=== PATIENT | female | born 1975 | race Caucasian/White ===

== ENCOUNTER 2016-09-13 11:18 | Day surgery (SDC) | payer MEDICAID ==
[2016-09-13] MEDS ORDERED: LIDOCAINE 1% 30 ML SDV ONE (12:12)
--- NOTE | 2016-09-13 13:23 | CPIP ---
[f rep st] INVASIVE CARDIAC PROCEDURE DATE OF PROCEDURE: 09/13/2016 INDICATIONS: The patient is a pleasant 40-year-old female, typically followed by Dr. German Andre. S he has a history of multiple episodes of syncope, with an etiology not yet identified. PROCEDURE: Implantation of a [employer]onic LINQ. TECHNIQUE: Following informed consent, in the fasting state the patient was brought to the [facility]. The left chest was prepped and draped in usual sterile fashion. The 4th intercostal space was identifie d and marked. 2% lidocaine was infiltrated into the skin. The Medtronic LINQ was then injected bene ath the skin. Two bran were used to close the wound. There were no complications. /[id number]/MODL
== END 2016-09-13 13:48 | disposition home or self-care (01) ==
LOC: FCATH 11:18
PROVIDERS: ATTEND Internal Medicine Cardiovascular Disease
PROC: 0JH60PZ Insertion of Cardiac Rhythm Related Device into Chest Subcutaneous Tissue and Fascia, Open Approach (ICD-10-PCS; principal; 2016-09-13)
DX: R55 Syncope and collapse (principal); I10 Essential (primary) hypertension; E78.5 Hyperlipidemia, unspecified; E11.9 Type 2 diabetes mellitus without complications; I25.10 Atherosclerotic heart disease of native coronary artery without angina pectoris
CPT/HCPCS: C1764

== ENCOUNTER → 2017-10-31 | Outpatient (CLI) | payer MEDICAID | LOC: BRMIMAGING 13:59 | PROVIDERS: ATTEND Internal Medicine Pulmonary Disease | DX: R91.8 Other nonspecific abnormal finding of lung field (principal); F17.210 Nicotine dependence, cigarettes, uncomplicated | CPT/HCPCS: 71046-PO ==